=== PATIENT | male | born 1930 | race Caucasian/White ===

== ENCOUNTER 2017-08-21 14:05 | Observation (INO) | payer MEDICARE ==
[~2017-08-21] VITALS: Ht 167.6 cm; Wt 83.1 kg
[~2017-08-21 14:05] MED LIST: LISINOPRIL AND1 TA1 PO; METFORMIN1000 MG PO
[2017-08-21] MEDS ORDERED: AMLODIPINE BESY10 MG PO (14:34)
[2017-08-21] MEDS ORDERED: LOPRESSOR 225 MG/TAB PO (14:34)
[2017-08-21] MEDS ORDERED: METFORMIN ER500 MG PO (14:35)
[2017-08-21] MEDS ORDERED: CHILDREN'S ASPI81 M1 PO (14:35)
[2017-08-21] MEDS ORDERED: LASIX20 M1 PO (14:40)
[2017-08-21] MEDS ORDERED: MULTI VITAMINS1 TAB PO (14:41)
[2017-08-21] MEDS ORDERED: BEE POLLEN550 MG PO (14:45)
[2017-08-21 15:23] LABS: HEMATOCRIT 47.5 % (42.0-52.0); HEMOGLOBIN 15.9 g/dL (13.5-18.0); MEAN CELL VOLUME 94 fl (78-100); MEAN CORPUSCULAR HEMOGLOBIN 32 pg (27-31); MEAN CORPUSCULAR HGB CONC 34 g/dL (33-37); MEAN PLATELET VOLUME 10.9 fl (7.4-10.4); PLATELET COUNT 161 K/mm3 (130-400); RED BLOOD COUNT 5.05 M/mm3 (4.20-5.60); RED CELL DISTRIBUTION WIDTH 12.7 % (11.5-14.5); WHITE BLOOD COUNT 9.4 K/mm3 (4.8-10.8)
[2017-08-21 15:31] LABS: ALBUMIN 4.3 g/dL (3.5-5.0); BUN/CREATININE RATIO 22.6 (6.0-26.0); CALCIUM 9.6 mg/dL (8.4-10.2); POTASSIUM 4.4 mmol/L (3.6-5.0); TOTAL BILIRUBIN 1.9 mg/dL (0.2-1.3); TOTAL PROTEIN 7.7 g/dL (6.3-8.2)
[2017-08-21 15:47] LABS: LYMPHOCYTE 8 % (20-51); MONOCYTE 7 % (3-10); NEUTROPHILS 85 % (42-75)
[2017-08-21 17:48] LABS: URINE APPEARANCE CLEAR; URINE BILIRUBIN NEGATIVE (NEGATIVE); URINE BLOOD NEGATIVE (NEGATIVE); URINE COLOR YELLOW; URINE GLUCOSE NEGATIVE (NEGATIVE); URINE KETONE NEGATIVE (NEGATIVE); URINE LEUKOCYTE ESTERASE NEGATIVE (NEGATIVE); URINE NITRATE NEGATIVE (NEGATIVE); URINE PROTEIN(semi-quant) NEGATIVE (NEGATIVE); URINE UROBILINOGEN NORMAL (NORMAL)
[2017-08-21 17:49] LABS: URINE MUCUS PRESENT (NOT PRESENT)
[2017-08-21 18:19] VITALS: BP 145/75
--- NOTE | 2017-08-21 19:15 | NUR ---
Bed alarm sounding. Staff enters room. Patient is sitting up on the edge of the bed. Attempting to get up to the restroom. Partially oriented. Voids 100ml. Stands up with staff x2, side steps 3-4 steps towards the head of the bed. Per staff present in room, patient had no reports of pain with weight bearing, no facial grimace, moaning, or calling out. Patient assisted back into bed. Denied needs. Fall precautions in place.
[2017-08-21 23:02] VITALS: BP 137/64
--- NOTE | 2017-08-22 00:42 | NUR ---
Q hourly checks done. Bed alarm set. Pt resting in bed, eyes closed with even respirations. Opens eyes when spoken too. Denies having any chest pain, SOB, nausea. resting in recliner at bed side.
[2017-08-22 02:59] VITALS: BP 155/69
[2017-08-22 06:21] VITALS: BP 150/77
--- NOTE | 2017-08-22 07:30 | NUR ---
Pt sitting up in bed. Alert to self and reoriented to time and situation. Pt is able to tell me his hip hurts. But often jokes at situations "I dont think I can go dancing" 1+ edema noted to RLE. at bedside
--- NOTE | 2017-08-22 08:00 | NUR ---
Pt assisted into wheel chair and into bathroom after unsuccessful attempt to have BM on bed foley. Pt requires much encouragment and cueing to move legs. Moderate assistance required.
--- NOTE | 2017-08-22 08:33 | NUR ---
Pt to MRI at this time
--- NOTE | 2017-08-22 11:08 | NUR ---
Pt resting in bad. Family at side. Prasad Rain in to discuss MRI results. Family vebalizes understanding. Pt denies any pain. "As long as I dont move, it doesnt hurt"
[2017-08-22 11:46] VITALS: BP 136/67
[2017-08-22 14:52] VITALS: BP 118/49
--- NOTE | 2017-08-22 14:55 | NUR ---
Pt leaves with [facility] at this time and report called to Mari at [facility]. Pt belongings and pills sent with pt
== END 2017-08-22 14:55 | disposition short-term general hospital (02) ==
LOC: ED 14:05 → MED/SURG 17:02
PROVIDERS: ADMIT Physician Assistant
DX: S72.011A Unspecified intracapsular fracture of right femur, initial encounter for closed fracture (principal); F03.90 Unspecified dementia, unspecified severity, without behavioral disturbance, psychotic disturbance, mood disturbance, and anxiety; M54.5 Low back pain; R93.7 Abnormal findings on diagnostic imaging of other parts of musculoskeletal system; I10 Essential (primary) hypertension; I25.10 Atherosclerotic heart disease of native coronary artery without angina pectoris; E11.9 Type 2 diabetes mellitus without complications; W18.30XA Fall on same level, unspecified, initial encounter; Y92.003 Bedroom of unspecified non-institutional (private) residence as the place of occurrence of the external cause; Z88.8 Allergy status to other drugs, medicaments and biological substances; Z79.82 Long term (current) use of aspirin; S50.311A Abrasion of right elbow, initial encounter
CPT/HCPCS: G0378; J1885; J3010

== ENCOUNTER 2017-08-25 15:28 | Inpatient (IN) | payer MEDICARE ==
[~2017-08-25] VITALS: Ht 165.1 cm; Wt 84.6 kg
[~2017-08-25 15:28] MED LIST changes: +AMLODIPINE BESY10 MG PO; +BEE POLLEN550 MG PO; +CHILDREN'S ASPI81 M1 PO; +LASIX20 M1 PO; +LOPRESSOR 225 MG/TAB PO; +METFORMIN ER500 MG PO; +MULTI VITAMINS1 TAB PO
--- NOTE | 2017-08-25 15:30 | NUR ---
Pt arrives to facility via POV with family and assisted out of the car with assist x2-3. Into wheelchair and into room 302. Pt assisted to bed with assist x2. Pt states pain with movement but unable to rate pain level. Family in room at this time, call light in reach, bed alarm on.
[2017-08-25 15:54] VITALS: BP 169/86
[2017-08-25 16:29] VITALS: BP 169/68
--- NOTE | 2017-08-25 17:00 | NUR ---
Pt up to chair for supper with assist x2 and walker. Unable to move well or understand commands or cueing well to pivot from bed to chair. Pt now in chair, chair alarm on, family in room, call light in reach.
[2017-08-25 18:34] VITALS: BP 172/87
--- NOTE | 2017-08-25 21:10 | NUR ---
Pt resting in bed. Denies pain while resting in bed. remains in room at this time and states that she will stay the night. Pt remains confused and unable to answer all questions appropriately. No further needs at this time. Call light in reach, bed alarm on.
[2017-08-25] MEDS ORDERED: PRED FORTE 1 ML1 ML OP (21:17)
[2017-08-25] MEDS ORDERED: TOBRAMYCIN AND2.5 ML OP (21:18)
--- NOTE | 2017-08-25 22:10 | NUR ---
Report received from Michelle Mock RN. Pt resting in bed, bed alarm set. Eyes closed even, none labored respirations. resting in recliner at bed side.
--- NOTE | 2017-08-26 03:00 | NUR ---
Pt awake, alert to self and . Denies right hip pain. Pt encouraged by to take pain medication. Pt agreed. Given tramadol 50mg PO. Pt swallowed without difficulty. Pt incontinent of urine. Depends changed. Tuyet care and coccyx care given. Barrier cream applied. Hospital gown and linen changed, due to incontinents.
--- NOTE | 2017-08-26 06:00 | NUR ---
Q hourly checks done. Bed alarm set. Resting in bed, eyes closed even respirations. continues at side.
[2017-08-26 06:49] VITALS: BP 159/81
--- NOTE | 2017-08-26 07:10 | NUR ---
Report given to Karie Nieves RN
--- NOTE | 2017-08-26 07:20 | NUR ---
Report given to Karie Nieves RN
--- NOTE | 2017-08-26 08:00 | NUR ---
PT REQUIRING 2:1 EXTENSIVE ASSIST TO TRANSFER FROM BED TO CHAIR AT THIS TIME, GRIMACING AND YELLING OUT IN PAIN, PRN TRAMADOL AVAILABLE AND WILL BE ADMINISTERED, PT ABLE TO STAND AND PIVOT SLOWLY INTO CHAIR WELL TAKE A FEW STEPS, MAINTAINED 50% WEIGHT BEARING WITH TRANSFER, PT ASSISTED TO CHAIR, BREAKFAST PREPARED FOR HIM, CHAIR ALARM ON, DENIES FURTHER NEEDS OR CONCERNS AT THIS TIME, DRESSING IS CLEAN DRY AND INTACT TO RIGHT HIP
--- NOTE | 2017-08-26 11:13 | NUR ---
PT UP IN CHAIR, DENIES PAIN UNLESS MOVED, PRN TRAMADOL GIVEN THIS AM, PT SMILING, REPOSITIONED IN CHAIR AT THIS TIME TO HELP RELIEVE PRESSURE FROM COCCYX, GRIMACES AND MOANS WITH REPOSITIONING, ONCE SETTLED PT IS CONTENT AGAIN AND DENIES PAIN, IN CHAIR, CALL LIGHT WITHIN REACH, AT BEDSIDE ALSO DENIES NEEDS, WILL CONTINUE TO MONITOR PAIN
--- NOTE | 2017-08-26 11:34 | NUR ---
PT'S HEAD OF CHAIR LEANED BACK TO ALLOW LEGS TO STRETCH, PT GRIMACES WITH STRETCHING OF SORE LEG BUT IS EASILY CONSOLED AND PAIN SUBSIDES ONCE REPOSITIONED, PT DENIES NEEDS, EDUCATED THAT WITH LUNCH HE WILL RECEIVE MORE PAIN MEDICINE THEN ATTEMPT TO TRANSFER BACK INTO BED WITH THE ASSISTANCE OF STAFF, PT'S REQUESTING HE STAY UP IN CHAIR THROUGHOUT MORNING AND RETURN TO BED AFTER LUNCH TO REST AND STRETCH OUT BETTER, WILL CONTINUE TO MONITOR PAIN AND REPOSITION PT APPROPRIATELY
--- NOTE | 2017-08-26 13:00 | NUR ---
DUE TO LIMITED MOBILITY PT IS PLACED ON A TURN Q2 SCHEDULE TO AVOID SKIN BREAKDOWN, BARRIER CREAM AND FOAM CLEANSER APPLIED WITH INCONTINENT EPISODES TO FURTHER ASSIST WITH PREVENTION
--- NOTE | 2017-08-26 13:04 | NUR ---
PT ASSISTED BACK TO BED AT THIS TIME USING 2:1 EXTENSIVE ASSISTANCE, GAIT BELT, WALKER, PT WAS ABLE TO ASSIST STANDING FROM CHAIR AND SLOWLY PIVOTED TO GET BACK INTO BED, INCONTINENT OF URINE AT THIS TIME IN BRIEF, PT CLEANSED THOROUGHLY, NEW BRIEF APPLIED, SLIGHTLY TURNED TO RIGHT SIDE TO ENSURE PRESSURE POINT RELIEF DUE TO WEAKNESS AND PAIN AND NOT BEING ABLE TO MOVE INDEPENDENTLY, PT REPORTS HE IS COMFORTABLE, LYING FLAT IN BED, BED ALARM ON, CALL LIGHT WITHIN REACH, SMILING AFFECT, PT TOLERATED TRANSFER WELL WITH OCCASIONAL MOANING AND GRIMACING, ASSURED THAT HE WILL GET MORE PAIN MEDICINE WHEN AVAILABLE, PT RESTING COMFORTABLY UPON EXITING ROOM
--- NOTE | 2017-08-26 18:44 | NUR ---
PT LAID FLAT IN BED AGAIN, RIGHT LEG STRETCHED OUT FLAT, PT EXPERIENCING PAIN WITH REPOSITIONING, SKIN TO BOTTOM CLEAN AND DRY, INCONTINENT BRIEF CHANGED, FOAM CLEANSER APPLIED TO GRAY AREA AND BARRIER CREAM APPLIED TO BOTTOM, PT TURNED SLIGHTLY ONTO LEFT SIDE PER PT COMFORT LEVEL REQUEST, WILL CONTINUE TO Q2 TURNING SCHEDULE TO HELP PREVENT SKIN BREAKDOWN, PT URINATED USING URINAL 25ML AT THIS TIME, DRESSING CLEAN DRY AND INTACT TO RIGHT HIP, PETER HOSE ON, PT EDUCATED ON DOING ANKLE PUMPS AND MINIMAL ARM AND LEG EXERCISES WHILE FOLLOWING HIP PRECAUTION PROTOCOL, UPON LEAVING PT RESTING COMFORTABLY ON LEFT SIDE IN BED WITH BED ALARM ON, CALL LIGHT WITHIN REACH, AND FAMILY PRESENT AT BEDSIDE UPON EXITING ROOM
[2017-08-26 19:04] VITALS: BP 161/79
--- NOTE | 2017-08-26 19:30 | NUR ---
Report received from Karie Nieves RN
--- NOTE | 2017-08-26 22:35 | NUR ---
2229 Q hourly checks done, bed alarm on. Resting in bed awake and alert to self. Pt incontinent of urine. Attempted to use urinal without success. Tuyet care and coccyx skin care given. Hvac Lead and barrier cream applied. at bed side. 2139 Offered evening snack, pt and declined. Pt took evening medication without difficulty swallowing.
--- NOTE | 2017-08-27 02:00 | NUR ---
Q hourly checks done. Bed alarm set. Resting in bed, eyes closed with even respirations. Pt repositioned Q 2 hours. Home Security Alarm Installer used on harvinder area and coccyx. Barrier cream applied with each incontinent depends changed.
--- NOTE | 2017-08-27 05:31 | NUR ---
Currently resting in bed awake, bed alarm set. Pt pleasant and talkative. No c/o's of pain voiced. When asked if pt if he was having hip pain. Pt stated "yes." Pt unable to rate pain on pain scale. Given tramadol 100mg PO. No difficulty noted with swallowing pills or water. continues at bed side.
[2017-08-27 07:18] VITALS: BP 162/81
--- NOTE | 2017-08-27 08:00 | NUR ---
Pt assisted up to chair for breakfast with 2 assist and alot of cueing and directions needed. Pt denies pain when not moving. Pt has been incontinent of urine and harvinder care is provided. Pt remains at side. Fall precautions in place.
[2017-08-27 18:01] VITALS: BP 157/98
--- NOTE | 2017-08-27 18:34 | NUR ---
patient curently in chair at bedside, states she does not want him in bed until after he has a bm
--- NOTE | 2017-08-27 19:14 | NUR ---
REPORT TO CRISTIAN MEIER
--- NOTE | 2017-08-27 20:40 | NUR ---
PATIENT SITTING UP IN WHEELCHAIR WATCHING THE BASKETBALL GAME, AT BEDSIDE. SHIFT ASSESSMENT COMPLETED AT THIS TIME. PATIENT ALERT, ONLY ORIENTED TO SELF. FLACC SCALE USED FOR PAIN ASSESSMENT, A SCORE OF 5/10 OBTAINED, 100 MG OF TRAMADOL ADMINISTERED. LUNGS CTA, NO COUGH OR SHORTNESS OF BREATH NOTED. AQUACEL TO RIGHT HIP CDI, 25% WEIGHT BEARING WITH FOOT FLAT ORDERED. +2 PITTING EDEMA NOTED IN BLE. HEEL REDDENED, HEEL PROTECTORS APPLIED. BUTTOCK PINK AND CDI. PATIENT BLADDER SCANNED FOR FREQUENT URINATION OF MINIMAL AMOUNTS AND A 24 HOUR INTAKE OF 2140 ML WITH AN OUTPUT OF 300 ML, 262 ML OF URINE FOUND IN BLADDER. ABDOMEN FIRM, DISTENDED, AND PATIENT DESCRIBES A FEELING OF NEEDING TO URINATE WHEN LIGHTLY PALPATED, PATIENT HAS NOT HAD A BM SINCE 08/22/17. HS MEDICATIONS GIVEN. PATIENT POSITIONED ON LEFT SIDE WITH PILLOW BETWEEN KNEES. PATIENT WITHOUT FURTHER NEEDS, WILL CONTINUE TO MONITOR. CALL LIGHT WITHIN REACH AND BED ALARM ON. PATIENT AND INSTRUCTED TO CALL WITH ANY NEEDS.
--- NOTE | 2017-08-28 01:20 | NUR ---
PROVIDER MICHAEL FALLON APRN NOTIFIED OF PATIENT'S DECREASE IN VOIDING COMPARED TO INTAKE AND BLADDER SCAN RESULTS.
[2017-08-28 06:40] VITALS: BP 147/85
--- NOTE | 2017-08-28 08:30 | NUR ---
Pt is Alert, oriented to self only. Ask pt about BM this AM and if he feels constipated. speaks up stating that it was not a BM as he did not go while on commode, he only went in brief. states that BM was loose and "was a real mess to clean up." Held miralax based on this information. Aquacel CDI to R lateral upper thigh. Pt reports pain stating "but it's not too bad." Pt noted to be drowsy and dozes off when not being spoken to. Had pain Rx this AM approx 0600.
--- NOTE | 2017-08-28 09:46 | NUR ---
Pt reports that pt suffers from urinary frequency and incontinence before fall. Speak with pt and spouse about starting flomax, both are in agreement.
--- NOTE | 2017-08-28 10:30 | NUR ---
While PT/OT assisting pt with shower, pt removes aquacel dressing from incision. With this removal, steri-strips are also removed. Incision edges well approximated, healing. No drainage, redness or open areas noted. Left KASSI.
--- NOTE | 2017-08-28 13:58 | NUR ---
Assist pt from recliner to bed via slideboard. Pt attempts to assist with transfer but is unable to move own weight on board, max assist x 2. Pt incontinent of bowel and bladder, cleansed and brief changed.
[2017-08-28 18:26] VITALS: BP 163/94
--- NOTE | 2017-08-28 20:10 | NUR ---
PATIENT RESTING SUPINE IN BED WITH AT BEDSIDE. SHIFT ASSESSMENT COMPLETED AT THIS TIME. PATIENT ALERT, NOT ORIENTED TO PERSON, PLACE, OR TIME. FLACC PAIN SCORE RESULTED IN 3/10 PAIN, WILL GIVE TRAMADOL WHEN AVAILABLE. LUNGS CTA, NO COUGH OR SHORTNESS OF BREATH NOTED. INCISION TO RIGHT HIP CDI, EDGES WELL APPROXIMATED, LINOTYPIST, 25% WEIGHT BEARING ORDERED. +2 PITTING EDEMA NOTED IN BLE. HS MEDICATIONS GIVEN. PATIENT POSITIONED ON LEFT SIDE. Q2H TURN SCHEDULE CONTINUED. PATIENT AND WITHOUT FURTHER NEEDS, WILL CONTINUE TO MONITOR. CALL LIGHT WITHIN REACH AND BED ALARM ON.
[2017-08-29 06:19] VITALS: BP 177/83
--- NOTE | 2017-08-29 09:00 | NUR ---
Pt sitting up in recliner. Lungs CTA, has mild cough with little to no production. Is alert, oriented to self only. Pt reports pain with movement to R leg. Incision CDI, PER DIEM.
--- NOTE | 2017-08-29 14:42 | NUR ---
Pt's given information on area on aging and on contacting [facility]. will be here for pt's care assessment this afternoon. POC still for pt to anticipate d/c to [facility] on Sunday for senior living.
[2017-08-29 17:57] VITALS: BP 166/86
[2017-08-30 06:24] VITALS: BP 171/91
--- NOTE | 2017-08-30 06:33 | NUR ---
Patient was up frequently throughout the night to void, he was incontinent about every 1-1.5 hours and then also either used the urinal or toilet to void, seemed to rest well in between voiding, spent the night in recliner at bedside, she used the call light to call staff each time before patient was able to climb out of bed, patient denied any pain when asked by mae valera occasionally with movement, otherwise patient denied any other complaints through the night,
--- NOTE | 2017-08-30 07:20 | NUR ---
REPORT RECEIVED FROM Prasad FAGANRN
[2017-08-30 11:23] LABS: URINE APPEARANCE CLEAR; URINE BILIRUBIN NEGATIVE (NEGATIVE); URINE BLOOD NEGATIVE (NEGATIVE); URINE COLOR YELLOW; URINE GLUCOSE NEGATIVE (NEGATIVE); URINE KETONE NEGATIVE (NEGATIVE); URINE LEUKOCYTE ESTERASE NEGATIVE (NEGATIVE); URINE NITRATE NEGATIVE (NEGATIVE); URINE PROTEIN(semi-quant) NEGATIVE (NEGATIVE); URINE UROBILINOGEN NORMAL (NORMAL); URINE WBC 0-1 /hpf (0-3)
--- NOTE | 2017-08-30 15:45 | NUR ---
this nurse heard patient's family member stating to patient "your not supposed to be doing that, don't move" this nurse promptly in room. patient found standing approximately 5-6 feet from recliner leaning on bedside table with no walker with family member at side. family member states "i walked out for 1 minute to go run something out to his i thought he would be fine" pressure alarm in place to recliner but did not sound when patient got up. this nurse put wheelchair behind patient and assisted him to sit down in wheelchair. patient reports needing to go to the bathroom. assisted patient into bathroom. pivot transfered onto toilet 2 person assist required. incontinent of stool. maintained non weight bearing to right lower ext. harvinder care provided. patient assisted back into recliner. patient had difficultly pivoting to recliner from wheelchair. required a lot of queing. was bent over holding onto this nurse for support. starting pivoting away from recliner instructed pt to turn other way. patient guided by nurse into recliner to sit down. non weight bearing status maintained. pressure alarm resituated in chair. clip alarm applied to patient as well. call light within reach. family member at patient's side.
[2017-08-30 18:20] VITALS: BP 159/87
--- NOTE | 2017-08-30 19:35 | NUR ---
REPORT GIVEN TO Prasad FAAGNRN
[2017-08-31 06:40] VITALS: BP 168/78
--- NOTE | 2017-08-31 07:20 | NUR ---
REPORT RECEIVED FROM Prasad FAGANRN
[2017-08-31] MEDS ORDERED: FLOMAX0.4 MG PO (07:27)
[2017-08-31] MEDS ORDERED: ASPIRIN 32325 MG/TAB PO (07:29)
[2017-08-31] MEDS ORDERED: IMODIUM 2MG CAPS2 MG PO (07:31)
[2017-08-31] MEDS ORDERED: TRAMADOL 50 MG TAB PO (07:31)
--- NOTE | 2017-08-31 08:00 | NUR ---
PATIENT'S SHIFT ASSESSMENT COMPLETE. REPORTS THAT THIS MORNING THINGS ARE "SO FAR SO GOOD" PATIENT SITTING UP IN RECLINER. PATIENT'S AT BEDSIDE. PATIENT ALERT. ORIENTED TO PERSON AND DATE OF . DENIES ANY PAIN OR DISCOMFORTS AT THIS TIME. DENIES ANY SHORTNESS OF BREATH OR DIFFICULTIES BREATHING. INCISION TO RIGHT LATERAL THIGH OPEN TO AIR. EDGES WELL APPROXIMATED. BOWEL SOUNDS HYPERACTIVE IN ALL QUADRANTS. PATIENT'S CALL LIGHT WITHIN REACH. CHAIR ALARMS ON X2. AT BEDSIDE.
--- NOTE | 2017-08-31 09:30 | NUR ---
Pt and his are in agreement w/ transferring for extended SN loc to [facility] as dictated by his insurance company which stated upon admission that an update on 08-31-17 was needed as to which LTC[facility] he would continue his SNF LOC in as they only allow short term stays in a [facility]. Discharge plan is faxed to [facility] and notifies [facility] of pending Authorization. CARE Assessment was completed as of 08-29-18. is given Medicare contact info she requests and all records have been faxed to [facility] where pt will continue to receive PT/OT/ST services.
[2017-08-31 09:59] VITALS: BP 168/78
--- NOTE | 2017-08-31 13:15 | NUR ---
REPORT GIVEN TO SHAMIKA RENDON
--- NOTE | 2017-08-31 13:20 | NUR ---
PATIENT LEFT FACILITY VIA WHEELCHAIR AT THIS TIME. 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 PERSONAL BELONGINGS SENT WITH PATIENT'S FAMILY MEMBERS.
== END 2017-08-31 13:20 | DRG 561 ==
LOC: MED/SURG 15:28
PROVIDERS: Physician Assistant; ADMIT Family Medicine
DX: S72.011D Unspecified intracapsular fracture of right femur, subsequent encounter for closed fracture with routine healing (principal); I10 Essential (primary) hypertension; F03.90 Unspecified dementia, unspecified severity, without behavioral disturbance, psychotic disturbance, mood disturbance, and anxiety; E11.9 Type 2 diabetes mellitus without complications; R53.81 Other malaise; Z95.1 Presence of aortocoronary bypass graft; Z98.1 Arthrodesis status; Z79.84 Long term (current) use of oral hypoglycemic drugs; W18.39XD Other fall on same level, subsequent encounter

== ENCOUNTER → 2017-09-27 | Outpatient (CLI) | payer MEDICARE ==
[2017-08-31 09:59] VITALS: BP 168/78
[~2017-09-27] MED LIST changes: +ASPIRIN 32325 MG/TAB PO; +FLOMAX0.4 MG PO; +IMODIUM 2MG CAPS2 MG PO; +PRED FORTE 1 ML1 ML OP; +TOBRAMYCIN AND2.5 ML OP; +TRAMADOL 50 MG TAB PO
== END ==
LOC: RAD 13:51
DX: M25.551 Pain in right hip (principal); Z98.890 Other specified postprocedural states

== ENCOUNTER → 2017-12-28 | Outpatient (CLI) | payer MEDICARE | LOC: RAD 12:09 | DX: M47.816 Spondylosis without myelopathy or radiculopathy, lumbar region (principal); M43.17 Spondylolisthesis, lumbosacral region; M54.5 Low back pain; Z91.81 History of falling; R93.7 Abnormal findings on diagnostic imaging of other parts of musculoskeletal system ==

== ENCOUNTER 2019-06-30 13:33 | Emergency (ER) | payer MEDICARE ==
[~2019-06-30] VITALS: Ht 167.6 cm; Wt 88.6 kg
[2019-06-30] MEDS ORDERED: PIOGLITAZONE HC15 MG PO (15:01)
[2019-06-30] MEDS ORDERED: DONEPEZIL HCL5 M1 PO (15:01)
[2019-06-30 15:02] LABS: EOS # 0.6 (0.04-0.40); HEMATOCRIT 45.6 % (42.0-52.0); HEMOGLOBIN 14.7 g/dL (13.5-18.0); LYMPH# 1.2 (1.50-4.00); MEAN CELL VOLUME 97 fl (78-100); MEAN CORPUSCULAR HEMOGLOBIN 31 pg (27-31); MEAN CORPUSCULAR HGB CONC 32 g/dL (33-37); MEAN PLATELET VOLUME 10.1 fl (7.4-10.4); MONO # 0.8 (0.20-0.80); PLATELET COUNT 250 K/mm3 (130-400); RED BLOOD COUNT 4.69 M/mm3 (4.20-5.60); RED CELL DISTRIBUTION WIDTH 14.5 % (11.5-14.5); WHITE BLOOD COUNT 7.6 K/mm3 (4.8-10.8)
[2019-06-30] MEDS ORDERED: CHOLESTYRAMINE P4 GM PO (15:02)
[2019-06-30] MEDS ORDERED: [UNRECOGNIZED DRUG - OTHER] TP (15:02)
[2019-06-30] MEDS ORDERED: LOPERAMIDE2 M2 PO (15:03)
[2019-06-30] MEDS ORDERED: ASPIRIN E.C. 8181 MG (15:03)
[2019-06-30] MEDS ORDERED: PAIN RELIEF325 M2 PO (15:03)
[2019-06-30] MEDS ORDERED: MILK OF MA400 MG/51 (15:04)
[2019-06-30] MEDS ORDERED: KAPSPARGO SPRIN25 MG PO (15:04)
[2019-06-30] MEDS ORDERED: NITROSTAT0.4 M1 SL (15:04)
[2019-06-30] MEDS ORDERED: NORVASC 10MG10 MG PO (15:05)
[2019-06-30] MEDS ORDERED: SEROQUEL50 MG PO ×2 (15:05)
[2019-06-30] MEDS ORDERED: FLOMAX0.4 MG PO (15:06)
[2019-06-30] MEDS ORDERED: TRULICITY0.75 MG/0. SC (15:06)
[2019-06-30] MEDS ORDERED: DESYREL 100MG100 MG PO (15:06)
[2019-06-30 15:12] LABS: POTASSIUM 3.8 mmol/L (3.5-5.1)
[2019-06-30 15:13] LABS: CALCIUM 9.8 mg/dL (8.3-10.5)
[2019-06-30 15:14] LABS: TOTAL PROTEIN 7.1 g/dL (6.2-8.1)
[2019-06-30 15:16] LABS: TOTAL BILIRUBIN 0.9 mg/dL (0.2-1.2)
[2019-06-30] MEDS ORDERED: AUGMENTIN 875-1 EAC1 PO (17:12)
[2019-06-30] MEDS ORDERED: MUCINEX 60600 MG/TA1 PO (17:12)
[2019-06-30] MEDS ORDERED: IPRATROPIUM BROM3 M1 IH (17:12)
[2019-06-30 17:37] VITALS: BP 143/81
== END 2019-06-30 17:55 | disposition home or self-care (01) ==
LOC: ED 13:33
PROVIDERS: Nurse Practitioner Primary Care
DX: J18.1 Lobar pneumonia, unspecified organism (principal); I11.0 Hypertensive heart disease with heart failure; I50.9 Heart failure, unspecified; E11.9 Type 2 diabetes mellitus without complications; F03.90 Unspecified dementia, unspecified severity, without behavioral disturbance, psychotic disturbance, mood disturbance, and anxiety; Z79.82 Long term (current) use of aspirin; Z79.84 Long term (current) use of oral hypoglycemic drugs